=== PATIENT | female | born 1990 | race Asian ===

== ENCOUNTER 2023-06-20 12:58 | Emergency (ER) | payer BC ==
[2023-06-20] MEDS ORDERED: Magnesium Sulfate/Water 2 GM in Premix Bag 1 BAG IV ONE (13:27)
[2023-06-20] MEDS ORDERED: Albuterol/Ipratropium 3.0-0.5 MG/3 ML Neb Soln NEB ONE (13:27)
[2023-06-20] MEDS ORDERED: Sodium Chloride 0.9% 10 ML Syringe FLUSH PRN (13:27)
[2023-06-20] MEDS ORDERED: Dexamethasone 4 MG/ML SDV IVPUSH ONE (13:27)
[2023-06-20] MEDS ORDERED: Albuterol/Ipratropium 3.0-0.5 MG/3 ML Neb Soln ONE (14:01)
[2023-06-20 14:08] LABS: CORONAVIRUS COVID-19 NAA NEGATIVE (NEGATIVE); INFLUENZA A NAA NEGATIVE (NEGATIVE); INFLUENZA B NAA NEGATIVE (NEGATIVE)
== END 2023-06-20 14:59 | disposition home or self-care (01) ==
LOC: DL.ED 12:58
DX: J45.21 Mild intermittent asthma with (acute) exacerbation (principal); J06.9 Acute upper respiratory infection, unspecified; Z20.822 Contact with and (suspected) exposure to COVID-19
CPT/HCPCS: 0240U; 94640; 96365; 96375; 99284; 99285-25; J1100; J3475; J3490; J7620-GY